=== PATIENT | male | born 1965 | race Caucasian/White ===

== ENCOUNTER 2018-10-25 22:10 | Emergency (ER) | payer BC ==
[~2018-10-25] VITALS: Ht 172.7 cm; Wt 77.1 kg
[2018-10-25 22:17] VITALS: Ht 172.7 cm; Wt 77.1 kg
[2018-10-25 22:57] VITALS: BP 145/92
== END 2018-10-25 22:57 | disposition home or self-care (01) ==
LOC: ED 22:10
DX: H66.92 Otitis media, unspecified, left ear (principal); H72.92 Unspecified perforation of tympanic membrane, left ear